=== PATIENT | male | born 1940 | race Caucasian/White ===

== ENCOUNTER 2018-05-13 22:59 | Emergency (ER) | payer OTHER ==
[~2018-05-13] VITALS: Ht 180.3 cm; Wt 83.9 kg
[2018-05-14 00:22] VITALS: BP 160/70
[2018-05-14] MEDS ORDERED: ACETAMINOPHEN/CODEINE#3 (300/30mg) TAB PO ONE (01:45)
== END 2018-05-14 01:46 | disposition home or self-care (01) ==
LOC: ER 23:10
DX: S00.81XA Abrasion of other part of head, initial encounter (principal); F17.210 Nicotine dependence, cigarettes, uncomplicated; Z86.73 Personal history of transient ischemic attack (TIA), and cerebral infarction without residual deficits; X58.XXXA Exposure to other specified factors, initial encounter; Y93.89 Activity, other specified; Y99.8 Other external cause status; Y92.89 Other specified places as the place of occurrence of the external cause

== ENCOUNTER 2018-11-15 23:17 | Emergency (ER) | payer OTHER ==
[~2018-11-15] VITALS: Ht 180.3 cm; Wt 80.7 kg
[2018-11-16 01:47] VITALS: BP 134/85
== END 2018-11-16 03:19 | disposition home or self-care (01) ==
LOC: ER 23:17
DX: L76.22 Postprocedural hemorrhage of skin and subcutaneous tissue following other procedure (principal); Z86.73 Personal history of transient ischemic attack (TIA), and cerebral infarction without residual deficits; F17.210 Nicotine dependence, cigarettes, uncomplicated; Y84.8 Other medical procedures as the cause of abnormal reaction of the patient, or of later complication, without mention of misadventure at the time of the procedure

== ENCOUNTER 2019-07-10 23:21 | Emergency (ER) | payer OTHER ==
[~2019-07-10] VITALS: Ht 180.3 cm; Wt 79.4 kg
[2019-07-11 00:18] LABS: Hematocrit 40.2 % (41.0-53.0); Hemoglobin 13.9 g/dL (13.5-17.5); Mean Corpuscular Hemoglobin 31.9 pg (28.0-32.0); Mean Corpuscular Hgb Conc. 34.7 g/dL (32.0-36.0); Mean Corpuscular Volume 92.1 fL (80.0-100.0); Platelet Count (auto) 135 10^3/uL (140-450); Red Blood Cells 4.36 10^6/uL (4.5-5.90); Red Cell Distribution Width 13.8 % (11.8-14.3); White Blood Cell 8.3 10^3/uL (4.4-10.8)
[2019-07-11 00:23] LABS: Band Neutrophils % (manual) 0; Basophils % (manual) 0 (0.0-2.0); Blast Cells 0; Eosinophils % (manual) 0 (0-7); Metamyelocytes % 0; Myelocytes % 0; Promyelocytes % 0; Reactive Lymphocytes 0
[2019-07-11 00:38] LABS: Albumin 3.5 g/dL (3.4-5.0); BUN/Creatinine Ratio 17.9; Calcium 8.4 mg/dL (8.5-10.1); Potassium 3.7 mmol/L (3.5-5.1)
[2019-07-11 00:43] LABS: Bilirubin, Total 1.4 mg/dL (0.2-1.0); Total Protein 6.9 g/dL (6.4-8.2)
[2019-07-11 00:45] LABS: Lymphocytes % (manual) 53 (10.0-50.0); Monocytes % (manual) 3 (0-12)
[2019-07-11 02:10] VITALS: BP 111/67
== END 2019-07-11 02:41 | disposition home or self-care (01) ==
LOC: ER 23:25
DX: I11.0 Hypertensive heart disease with heart failure (principal); I50.9 Heart failure, unspecified; F17.210 Nicotine dependence, cigarettes, uncomplicated; Z86.73 Personal history of transient ischemic attack (TIA), and cerebral infarction without residual deficits
CPT/HCPCS: 36415; 71045; 80053; 83880; 84484; 85007; 85027; 93005

== ENCOUNTER 2019-12-08 08:30 | Inpatient (IN) | payer OTHER ==
[~2019-12-08] VITALS: Ht 180.3 cm; Wt 78.9 kg
[2019-12-08] VITALS (51 sets, daily range): BP systolic 88–128; BP diastolic 39–76
[2019-12-08] MEDS ORDERED: IPRATROPIUM BROM 0.5 MG/2.5ML INH SOL NEB ONE (08:40)
[2019-12-08] MEDS ORDERED: ALBUTEROL SULF 2.5 MG/0.5ML(0.5%) NEB SOLN NEB ONE (08:40)
[2019-12-08] MEDS ORDERED: methylPREDNISolone SOD SUCC 125 MG/2 ML VL IV ONE (08:45)
[2019-12-08 08:57] LABS: Hematocrit 40.7 % (41.0-53.0); Hemoglobin 13.8 g/dL (13.5-17.5); Mean Corpuscular Hemoglobin 31.2 pg (28.0-32.0); Mean Corpuscular Hgb Conc. 33.9 g/dL (32.0-36.0); Platelet Count (auto) 158 10^3/uL (140-450); Red Blood Cells 4.42 10^6/uL (4.5-5.90); Red Cell Distribution Width 14.7 % (11.8-14.3)
[2019-12-08 09:01] LABS: White Blood Cell 35.5 10^3/uL (4.4-10.8)
[2019-12-08 09:02] LABS: Band Neutrophils % (manual) 0; Basophils % (manual) 0 (0.0-2.0); Blast Cells 0; Eosinophils % (manual) 0 (0-7); Metamyelocytes % 0; Myelocytes % 0; Promyelocytes % 0; Reactive Lymphocytes 0
[2019-12-08] MEDS ORDERED: AZITHROMYCIN 500MG/ 250ML 250 ML IV ONE (09:15)
[2019-12-08] MEDS ORDERED: cefTRIAXone 1GM/50ML D5W 50 ML IV ONE (09:15)
[2019-12-08 09:25] LABS: Albumin 2.8 g/dL (3.4-5.0); Anion Gap 6 (5-15); Blood Urea Nitrogen 47 mg/dL (7-18); Calcium 8.9 mg/dL (8.5-10.1); Carbon Dioxide 25 mmol/L (21-32); Chloride 100 mmol/L (98-107); Glucose 138 mg/dL (74-106); Magnesium 2.6 mg/dL (1.6-2.6); Potassium 4.7 mmol/L (3.5-5.1); Sodium 131 mmol/L (136-145)
[2019-12-08 09:28] LABS: INR 1.11 (0.9-1.15); Lactic Acid w/Reflex 2.6 mmol/L (0.4-2.0); Partial Thromboplastin Time 33.3 sec (23.64-32.05)
[2019-12-08 09:29] LABS: Lymphocytes % (manual) 68 (10.0-50.0); Monocytes % (manual) 3 (0-12)
[2019-12-08 09:31] LABS: Alanine Aminotransferase 22 U/L (16-61); Alkaline Phosphatase 63 U/L (45-117); Aspartate Aminotransferase 22 U/L (15-37); BUN/Creatinine Ratio 35.6; Bilirubin, Total 1.9 mg/dL (0.2-1.0); GFR African American 67 mL/min; GFR Non-African American 55 mL/min; Total Protein 7.3 g/dL (6.4-8.2)
[2019-12-08] MEDS ORDERED: FUROSEMIDE 20 MG/2 ML VIAL ONE (10:13)
[2019-12-08] MEDS ORDERED: FUROSEMIDE 20 MG/2 ML VIAL IV ONE (10:15)
[2019-12-08] MEDS ORDERED: FUROSEMIDE 40 MG/4 ML VIAL IV ONE ×2 (11:00→18:15)
[2019-12-08] MEDS ORDERED: MORPHINE SULF INJ 2 MG/ML SYRINGE 1ML IV PRN (11:00)
[2019-12-08] MEDS ORDERED: NITROGLYCERIN 0.4 MG SL TAB SL PRN (11:00)
[2019-12-08] MEDS: DOPamine 1600MCG/ML D5W 250 ML IV SCH ×2 (11:09→23:30)
[2019-12-08 11:46] LABS: Urine Amorphous Crystal FEW /hpf (None Seen); Urine Bacteria FEW /hpf (None Seen); Urine Blood TRACE /uL (Negative); Urine Mucus FEW (None Seen); Urine Specific Gravity 1.025 (1.001-1.035); Urine WBC 1 /hpf (0 - 3)
[2019-12-08] MEDS ORDERED: FUROSEMIDE 40 MG/4 ML VIAL ONE ×2 (14:44→18:22)
[2019-12-08] MEDS ORDERED: SPIR25TA88 PO (15:48)
[2019-12-08] MEDS ORDERED: CITA-244 PO (15:48)
[2019-12-08] MEDS ORDERED: LOSA25TA38 PO (15:48)
[2019-12-08] MEDS ORDERED: APIX5TAB PO (15:48)
[2019-12-08] MEDS ORDERED: BISO5TAB44 PO (15:48)
[2019-12-08] MEDS ORDERED: PRAV20TA3 PO (15:48)
[2019-12-08] MEDS ORDERED: POTA8TAB2 PO (15:48)
[2019-12-08] MEDS: SPIRONOLACTONE 25 MG TAB PO SCH (20:23)
[2019-12-08] MEDS: APIXABAN 2.5 MG TAB PO SCH (21:47)
[2019-12-08] MEDS: DOXYCYCLINE 100 MG TAB/CAP PO SCH (21:47)
[2019-12-08] MEDS: ATORVASTATIN 20 MG TAB PO SCH (21:47)
[2019-12-08] MEDS: FAMOTIDINE (10MG/ML) 2ML VL IV SCH (21:47)
[2019-12-09] VITALS (180 sets, daily range): BP systolic 66–159; BP diastolic 27–84
[2019-12-09 03:42] LABS: Hemoglobin 13.5 g/dL (13.5-17.5); Mean Corpuscular Hemoglobin 30.7 pg (28.0-32.0); Mean Corpuscular Hgb Conc. 33.7 g/dL (32.0-36.0); Platelet Count (auto) 186 10^3/uL (140-450); Red Blood Cells 4.39 10^6/uL (4.5-5.90); Red Cell Distribution Width 14.5 % (11.8-14.3)
[2019-12-09 03:54] LABS: Albumin 2.5 g/dL (3.4-5.0); Calcium 9.1 mg/dL (8.5-10.1); Potassium 4.6 mmol/L (3.5-5.1)
[2019-12-09 03:59] LABS: Bilirubin, Total 1.1 mg/dL (0.2-1.0); Total Protein 7.1 g/dL (6.4-8.2)
[2019-12-09 04:20] LABS: White Blood Cell 33.5 10^3/uL (4.4-10.8)
[2019-12-09 04:21] LABS: Basophils % (manual) 0 (0.0-2.0); Blast Cells 0; Eosinophils % (manual) 0 (0-7); Metamyelocytes % 0; Myelocytes % 0; Promyelocytes % 0; Reactive Lymphocytes 0
[2019-12-09 04:56] LABS: Band Neutrophils % (manual) 1; Monocytes % (manual) 2 (0-12)
[2019-12-09 04:57] LABS: Lymphocytes % (manual) 77 (10.0-50.0)
[2019-12-09] MEDS: SPIRONOLACTONE 25 MG TAB PO SCH ×2 (05:53→17:57)
[2019-12-09] MEDS ORDERED: DIGOXIN (250MCG/ML) 2 ML AMPULE IV ONE (08:30)
[2019-12-09] MEDS ORDERED: FUROSEMIDE 40 MG/4 ML VIAL IV SCH (10:00)
[2019-12-09] MEDS: DOXYCYCLINE 100 MG TAB/CAP PO SCH ×2 (10:21→21:53)
[2019-12-09] MEDS: CITALOPRAM HYDROBR 20 MG TAB PO SCH (10:22)
[2019-12-09] MEDS: APIXABAN 2.5 MG TAB PO SCH ×2 (10:22→21:53)
[2019-12-09] MEDS: FAMOTIDINE (10MG/ML) 2ML VL IV SCH (10:23)
[2019-12-09] MEDS: DOPamine 1600MCG/ML D5W 250 ML IV SCH (10:44)
[2019-12-09] MEDS ORDERED: FUROSEMIDE 20 MG/2 ML VIAL IV ONE (15:00)
[2019-12-09] MEDS: Ensure HIGH Protein Chocolate 8oz Bottle PO SCH (19:00)
[2019-12-09] MEDS: ATORVASTATIN 20 MG TAB PO SCH (21:53)
[2019-12-09] MEDS: FUROSEMIDE 20 MG/2 ML VIAL IV SCH (21:53)
[2019-12-09] MEDS ORDERED: LORazepam 2MG/ML-1ML VIAL IV ONE (22:30)
[2019-12-10] VITALS (76 sets, daily range): BP systolic 89–154; BP diastolic 46–84
[2019-12-10 04:14] LABS: Hematocrit 38.9 % (41.0-53.0); Hemoglobin 13.3 g/dL (13.5-17.5); Mean Corpuscular Hemoglobin 30.9 pg (28.0-32.0); Mean Corpuscular Hgb Conc. 34.2 g/dL (32.0-36.0); Mean Corpuscular Volume 90.5 fL (80.0-100.0); Platelet Count (auto) 157 10^3/uL (140-450); Red Cell Distribution Width 14.2 % (11.8-14.3)
[2019-12-10 04:16] LABS: Basophils % (manual) 0 (0.0-2.0); Blast Cells 0; Eosinophils % (manual) 0 (0-7); Metamyelocytes % 0; Myelocytes % 0; Promyelocytes % 0; Reactive Lymphocytes 0
[2019-12-10 04:30] LABS: Potassium 4.1 mmol/L (3.5-5.1)
[2019-12-10 04:41] LABS: Albumin 2.3 g/dL (3.4-5.0); BUN/Creatinine Ratio 49.3; Bilirubin, Total 0.8 mg/dL (0.2-1.0); Calcium 9.1 mg/dL (8.5-10.1); Total Protein 6.6 g/dL (6.4-8.2)
[2019-12-10 05:44] LABS: Band Neutrophils % (manual) 4; Lymphocytes % (manual) 69 (10.0-50.0); Monocytes % (manual) 2 (0-12)
[2019-12-10] MEDS ORDERED: dilTIAZem 25 MG/5 ML VIAL IV ONE (06:45)
[2019-12-10] MEDS ORDERED: AMIODARONE HCL 150 MG in D5W 5% 100 ML IV ONE (06:45)
[2019-12-10] MEDS: dilTIAZem 125mg/125ml BAG KIT 125 ML IV SCH (06:45)
[2019-12-10] MEDS ORDERED: DIGOXIN (250MCG/ML) 2 ML AMPULE IV ONE (06:45)
[2019-12-10] MEDS ORDERED: AMIODARONE HCL 900 MG in DEXTROSE 500 ML IV SCH (06:49)
[2019-12-10] MEDS ORDERED: DIGOXIN (250MCG/ML) 2 ML AMPULE ONE (06:50)
[2019-12-10] MEDS: SPIRONOLACTONE 25 MG TAB PO SCH ×2 (06:54→18:18)
[2019-12-10] MEDS: Ensure HIGH Protein Chocolate 8oz Bottle PO SCH ×3 (08:00→18:00)
[2019-12-10] MEDS: DOPamine 1600MCG/ML D5W 250 ML IV SCH (11:00)
[2019-12-10] MEDS: CITALOPRAM HYDROBR 20 MG TAB PO SCH (12:56)
[2019-12-10] MEDS: DOXYCYCLINE 100 MG TAB/CAP PO SCH ×2 (12:56→22:25)
[2019-12-10] MEDS: APIXABAN 2.5 MG TAB PO SCH ×2 (12:56→22:24)
[2019-12-10] MEDS: FAMOTIDINE (10MG/ML) 2ML VL IV SCH (12:56)
[2019-12-10] MEDS: FUROSEMIDE 20 MG/2 ML VIAL IV SCH ×2 (12:56→22:23)
[2019-12-10] MEDS ORDERED: VANCOMYCIN PER PHARMACY 0 MG IV SCH (14:30)
[2019-12-10] MEDS ORDERED: NICOTINE 21MG/24 HR TOPICAL PATCH TD ONE (14:30)
[2019-12-10] MEDS ORDERED: PIPERACILLIN-TAZOB 3.375GM 100 ML IV SCH (15:00)
[2019-12-10] MEDS ORDERED: VANCOMYCIN 1GM/250ML 250 ML IV ONE ×3 (16:00→18:00)
[2019-12-10] MEDS ORDERED: AMIODARONE HCL 200 MG TAB PO ONE (17:30)
[2019-12-10] MEDS ORDERED: dilTIAZem 120MG ER CAP PO ONE (18:00)
[2019-12-10] MEDS ORDERED: VANCOMYCIN 1GM/250ML 250 ML IV SCH (18:13)
[2019-12-10] MEDS: IPRATROPIUM BROM 0.5 MG/2.5ML INH SOL NEB SCH ×2 (18:38→22:30)
[2019-12-10] MEDS: ALBUTEROL SULF 2.5 MG/0.5ML(0.5%) NEB SOLN NEB SCH ×2 (18:38→22:30)
[2019-12-10] MEDS ORDERED: dilTIAZem HCL 180MG ER CAP PO ONE (18:45)
[2019-12-10] MEDS: PIPERACILLIN-TAZOB 3.375GM 100 ML IV SCH (19:00)
[2019-12-10] MEDS: AMIODARONE HCL 200 MG TAB PO SCH (22:23)
[2019-12-10] MEDS: ATORVASTATIN 20 MG TAB PO SCH (22:24)
[2019-12-10] MEDS: SACUBITRIL-VALSARTAN 24mg/26mg TAB PO SCH (22:24)
[2019-12-10] MEDS: MONTELUKAST SODIUM 10 MG TAB PO SCH (22:25)
[2019-12-11] VITALS (76 sets, daily range): BP systolic 86–121; BP diastolic 41–74
[2019-12-11] MEDS: PIPERACILLIN-TAZOB 3.375GM 100 ML IV SCH ×4 (01:00→18:41)
[2019-12-11] MEDS: ALBUTEROL SULF 2.5 MG/0.5ML(0.5%) NEB SOLN NEB SCH ×6 (02:25→22:07)
[2019-12-11] MEDS: IPRATROPIUM BROM 0.5 MG/2.5ML INH SOL NEB SCH ×6 (02:25→22:07)
[2019-12-11 03:59] LABS: Hemoglobin 14.1 g/dL (13.5-17.5); Mean Corpuscular Hemoglobin 30.5 pg (28.0-32.0); Mean Corpuscular Hgb Conc. 33.5 g/dL (32.0-36.0); Mean Corpuscular Volume 91.1 fL (80.0-100.0); Platelet Count (auto) 162 10^3/uL (140-450); Red Blood Cells 4.61 10^6/uL (4.5-5.90); Red Cell Distribution Width 14.2 % (11.8-14.3); White Blood Cell 25.1 10^3/uL (4.4-10.8)
[2019-12-11 04:17] LABS: Albumin 2.5 g/dL (3.4-5.0); BUN/Creatinine Ratio 43.2; Calcium 9.3 mg/dL (8.5-10.1); Potassium 3.9 mmol/L (3.5-5.1)
[2019-12-11 04:33] LABS: Bilirubin, Total 1.2 mg/dL (0.2-1.0); Total Protein 6.8 g/dL (6.4-8.2)
[2019-12-11 04:44] LABS: Basophils % (manual) 0 (0.0-2.0); Blast Cells 0; Eosinophils % (manual) 0 (0-7); Metamyelocytes % 0; Myelocytes % 0; Promyelocytes % 0
[2019-12-11 05:43] LABS: Band Neutrophils % (manual) 3; Lymphocytes % (manual) 67 (10.0-50.0); Monocytes % (manual) 1 (0-12); Reactive Lymphocytes 1
[2019-12-11] MEDS: SPIRONOLACTONE 25 MG TAB PO SCH ×2 (06:34→18:41)
[2019-12-11] MEDS: dilTIAZem 125mg/125ml BAG KIT 125 ML IV SCH (06:45)
[2019-12-11] MEDS: Ensure HIGH Protein Chocolate 8oz Bottle PO SCH ×3 (08:00→18:00)
[2019-12-11] MEDS: FAMOTIDINE (10MG/ML) 2ML VL IV SCH (09:59)
[2019-12-11] MEDS: FUROSEMIDE 20 MG/2 ML VIAL IV SCH ×2 (10:00→22:03)
[2019-12-11] MEDS: SACUBITRIL-VALSARTAN 24mg/26mg TAB PO SCH ×2 (10:00→22:00)
[2019-12-11] MEDS: NICOTINE 21MG/24 HR TOPICAL PATCH TD SCH (10:01)
[2019-12-11] MEDS: APIXABAN 2.5 MG TAB PO SCH ×2 (10:02→22:04)
[2019-12-11] MEDS: CITALOPRAM HYDROBR 20 MG TAB PO SCH (10:03)
[2019-12-11] MEDS: predniSONE 20 MG TAB PO SCH (10:03)
[2019-12-11] MEDS: DOXYCYCLINE 100 MG TAB/CAP PO SCH ×2 (10:03→22:04)
[2019-12-11] MEDS: dilTIAZem HCL 180MG ER CAP PO SCH (10:04)
[2019-12-11] MEDS ORDERED: ACETAMINOPHEN 325 MG TAB PO ONE (10:05)
[2019-12-11] MEDS: AMIODARONE HCL 200 MG TAB PO SCH ×2 (10:06→22:03)
[2019-12-11] MEDS ORDERED: ACETAMINOPHEN 325 MG TAB PO PRN (10:30)
[2019-12-11] MEDS: DOPamine 1600MCG/ML D5W 250 ML IV SCH (11:00)
[2019-12-11] MEDS: VANCOMYCIN 1GM/250ML 250 ML IV SCH (13:00)
[2019-12-11] MEDS: ACETYLCYSTEINE 10 %(100MG/ML) SOL 4ML NEB SCH ×2 (14:47→22:07)
[2019-12-11 15:39] LABS: Hepatitis B Surface Antibody Negative
[2019-12-11 16:31] LABS: Hepatitis B Core Total AB Negative; Hepatitis B Surface Antigen Negative (Negative); Hepatitis C Antibody Negative (Negative)
[2019-12-11] MEDS: ATORVASTATIN 20 MG TAB PO SCH (22:04)
[2019-12-11] MEDS: MONTELUKAST SODIUM 10 MG TAB PO SCH (22:09)
[2019-12-12] VITALS (31 sets, daily range): BP systolic 84–122; BP diastolic 38–66
[2019-12-12] MEDS: IPRATROPIUM BROM 0.5 MG/2.5ML INH SOL NEB SCH ×6 (02:26→22:04)
[2019-12-12] MEDS: ALBUTEROL SULF 2.5 MG/0.5ML(0.5%) NEB SOLN NEB SCH ×6 (02:26→22:04)
[2019-12-12] MEDS: PIPERACILLIN-TAZOB 3.375GM 100 ML IV SCH ×4 (02:32→18:33)
[2019-12-12 04:28] LABS: Hematocrit 40.2 % (41.0-53.0); Hemoglobin 13.7 g/dL (13.5-17.5); Mean Corpuscular Hemoglobin 31.2 pg (28.0-32.0); Mean Corpuscular Volume 91.7 fL (80.0-100.0); Platelet Count (auto) 161 10^3/uL (140-450); Red Blood Cells 4.38 10^6/uL (4.5-5.90); White Blood Cell 25.8 10^3/uL (4.4-10.8)
[2019-12-12 04:34] LABS: Band Neutrophils % (manual) 0; Basophils % (manual) 0 (0.0-2.0); Blast Cells 0; Eosinophils % (manual) 0 (0-7); Metamyelocytes % 0; Myelocytes % 0; Promyelocytes % 0
[2019-12-12 04:49] LABS: Potassium 3.9 mmol/L (3.5-5.1)
[2019-12-12 04:58] LABS: Albumin 2.3 g/dL (3.4-5.0); BUN/Creatinine Ratio 35.8; Bilirubin, Total 1.3 mg/dL (0.2-1.0); Calcium 8.9 mg/dL (8.5-10.1); Total Protein 6.4 g/dL (6.4-8.2)
[2019-12-12 05:11] LABS: Lymphocytes % (manual) 55 (10.0-50.0); Monocytes % (manual) 2 (0-12); Reactive Lymphocytes 1
[2019-12-12] MEDS: VANCOMYCIN 1GM/250ML 250 ML IV SCH ×2 (06:00→23:59)
[2019-12-12] MEDS: SPIRONOLACTONE 25 MG TAB PO SCH ×2 (06:00→18:26)
[2019-12-12] MEDS: dilTIAZem 125mg/125ml BAG KIT 125 ML IV SCH (06:45)
[2019-12-12] MEDS: Ensure HIGH Protein Chocolate 8oz Bottle PO SCH ×3 (08:00→18:27)
[2019-12-12] MEDS: ACETYLCYSTEINE 10 %(100MG/ML) SOL 4ML NEB SCH ×3 (08:17→22:04)
[2019-12-12] MEDS: dilTIAZem HCL 180MG ER CAP PO SCH (10:00)
[2019-12-12] MEDS: SACUBITRIL-VALSARTAN 24mg/26mg TAB PO SCH ×2 (10:00→21:30)
[2019-12-12] MEDS: FAMOTIDINE (10MG/ML) 2ML VL IV SCH (10:26)
[2019-12-12] MEDS: NICOTINE 21MG/24 HR TOPICAL PATCH TD SCH (10:26)
[2019-12-12] MEDS: predniSONE 20 MG TAB PO SCH (10:27)
[2019-12-12] MEDS: DOXYCYCLINE 100 MG TAB/CAP PO SCH ×2 (10:27→21:10)
[2019-12-12] MEDS: CITALOPRAM HYDROBR 20 MG TAB PO SCH (10:27)
[2019-12-12] MEDS: APIXABAN 2.5 MG TAB PO SCH ×2 (10:27→21:10)
[2019-12-12] MEDS: FUROSEMIDE 20 MG/2 ML VIAL IV SCH ×2 (10:27→21:11)
[2019-12-12] MEDS: AMIODARONE HCL 200 MG TAB PO SCH ×2 (10:27→21:11)
[2019-12-12] MEDS: DIGOXIN 0.125 MG TAB PO SCH (10:28)
[2019-12-12] MEDS: DOPamine 1600MCG/ML D5W 250 ML IV SCH (11:00)
[2019-12-12] MEDS ORDERED: NYSTATIN (MOUTH-THROAT) 500,000 UNITS/5 ML SUSP MT ONE (14:45)
[2019-12-12] MEDS: ATORVASTATIN 20 MG TAB PO SCH (21:10)
[2019-12-12] MEDS: NYSTATIN (MOUTH-THROAT) 500,000 UNITS/5 ML SUSP MT SCH (21:11)
[2019-12-12] MEDS: MONTELUKAST SODIUM 10 MG TAB PO SCH (21:11)
[2019-12-13] VITALS (17 sets, daily range): BP systolic 100–124; BP diastolic 49–94
[2019-12-13] MEDS: PIPERACILLIN-TAZOB 3.375GM 100 ML IV SCH ×4 (01:00→18:38)
[2019-12-13] MEDS: ALBUTEROL SULF 2.5 MG/0.5ML(0.5%) NEB SOLN NEB SCH ×6 (02:23→23:00)
[2019-12-13] MEDS: IPRATROPIUM BROM 0.5 MG/2.5ML INH SOL NEB SCH ×6 (02:23→23:00)
[2019-12-13 02:43] LABS: Hematocrit 41.4 % (41.0-53.0); Hemoglobin 13.8 g/dL (13.5-17.5); Mean Corpuscular Hemoglobin 30.7 pg (28.0-32.0); Mean Corpuscular Hgb Conc. 33.4 g/dL (32.0-36.0); Platelet Count (auto) 205 10^3/uL (140-450); Red Blood Cells 4.49 10^6/uL (4.5-5.90); Red Cell Distribution Width 14.5 % (11.8-14.3); White Blood Cell 25.8 10^3/uL (4.4-10.8)
[2019-12-13 02:45] LABS: Band Neutrophils % (manual) 0; Basophils % (manual) 0 (0.0-2.0); Blast Cells 0; Eosinophils % (manual) 0 (0-7); Metamyelocytes % 0; Myelocytes % 0; Promyelocytes % 0; Reactive Lymphocytes 0
[2019-12-13 02:53] LABS: Albumin 2.3 g/dL (3.4-5.0); BUN/Creatinine Ratio 34.9; Calcium 9.1 mg/dL (8.5-10.1); Potassium 4.6 mmol/L (3.5-5.1)
[2019-12-13 02:55] LABS: Bilirubin, Total 1.1 mg/dL (0.2-1.0); Total Protein 6.8 g/dL (6.4-8.2)
[2019-12-13 03:17] LABS: Lymphocytes % (manual) 63 (10.0-50.0); Monocytes % (manual) 3 (0-12)
[2019-12-13] MEDS: SPIRONOLACTONE 25 MG TAB PO SCH ×2 (06:00→18:38)
[2019-12-13] MEDS: NYSTATIN (MOUTH-THROAT) 500,000 UNITS/5 ML SUSP MT SCH ×4 (06:00→22:58)
[2019-12-13] MEDS: ACETYLCYSTEINE 10 %(100MG/ML) SOL 4ML NEB SCH (06:15)
[2019-12-13] MEDS: dilTIAZem 125mg/125ml BAG KIT 125 ML IV SCH (06:45)
[2019-12-13 08:06] LABS: Immunoglobulin G, Serum 903 mg/dL (700-1600)
[2019-12-13] MEDS: FAMOTIDINE (10MG/ML) 2ML VL IV SCH (09:56)
[2019-12-13] MEDS: predniSONE 20 MG TAB PO SCH (09:57)
[2019-12-13] MEDS: CITALOPRAM HYDROBR 20 MG TAB PO SCH (09:59)
[2019-12-13] MEDS: AMIODARONE HCL 200 MG TAB PO SCH ×2 (09:59→22:58)
[2019-12-13] MEDS: DOXYCYCLINE 100 MG TAB/CAP PO SCH ×2 (09:59→22:56)
[2019-12-13] MEDS: APIXABAN 2.5 MG TAB PO SCH ×2 (10:00→22:57)
[2019-12-13] MEDS: FUROSEMIDE 20 MG/2 ML VIAL IV SCH ×2 (10:00→22:00)
[2019-12-13] MEDS: SACUBITRIL-VALSARTAN 24mg/26mg TAB PO SCH ×2 (10:00→22:00)
[2019-12-13] MEDS: NICOTINE 21MG/24 HR TOPICAL PATCH TD SCH (10:05)
[2019-12-13] MEDS: Ensure HIGH Protein Chocolate 8oz Bottle PO SCH ×3 (10:18→18:00)
[2019-12-13] MEDS: DOPamine 1600MCG/ML D5W 250 ML IV SCH (11:00)
[2019-12-13] MEDS: dilTIAZem HCL 180MG ER CAP PO SCH (12:09)
[2019-12-13] MEDS: VANCOMYCIN 1GM/250ML 250 ML IV SCH (16:04)
[2019-12-13] MEDS: MONTELUKAST SODIUM 10 MG TAB PO SCH (22:55)
[2019-12-13] MEDS: ATORVASTATIN 20 MG TAB PO SCH (22:56)
[2019-12-14] VITALS (7 sets, daily range): BP systolic 111–139; BP diastolic 59–80
[2019-12-14] MEDS: PIPERACILLIN-TAZOB 3.375GM 100 ML IV SCH ×4 (01:31→18:20)
[2019-12-14] MEDS: IPRATROPIUM BROM 0.5 MG/2.5ML INH SOL NEB SCH ×6 (02:31→21:35)
[2019-12-14] MEDS: ALBUTEROL SULF 2.5 MG/0.5ML(0.5%) NEB SOLN NEB SCH ×6 (02:31→21:35)
[2019-12-14 05:47] LABS: Hematocrit 38.7 % (41.0-53.0); Hemoglobin 13.1 g/dL (13.5-17.5); Mean Corpuscular Hemoglobin 30.7 pg (28.0-32.0); Mean Corpuscular Hgb Conc. 33.8 g/dL (32.0-36.0); Mean Corpuscular Volume 90.9 fL (80.0-100.0); Platelet Count (auto) 212 10^3/uL (140-450); Red Blood Cells 4.25 10^6/uL (4.5-5.90); Red Cell Distribution Width 13.9 % (11.8-14.3); White Blood Cell 25.6 10^3/uL (4.4-10.8)
[2019-12-14 05:50] LABS: Basophils % (manual) 0 (0.0-2.0); Blast Cells 0; Metamyelocytes % 0; Myelocytes % 0; Promyelocytes % 0
[2019-12-14 05:55] LABS: Potassium 4.5 mmol/L (3.5-5.1)
[2019-12-14 06:05] LABS: Albumin 2.2 g/dL (3.4-5.0); BUN/Creatinine Ratio 30.8; Calcium 8.8 mg/dL (8.5-10.1); Total Protein 6.1 g/dL (6.4-8.2)
[2019-12-14] MEDS: SPIRONOLACTONE 25 MG TAB PO SCH ×2 (06:15→18:14)
[2019-12-14] MEDS: NYSTATIN (MOUTH-THROAT) 500,000 UNITS/5 ML SUSP MT SCH ×4 (06:15→21:44)
[2019-12-14] MEDS: Ensure HIGH Protein Chocolate 8oz Bottle PO SCH ×3 (08:00→18:16)
[2019-12-14] MEDS: VANCOMYCIN 1GM/250ML 250 ML IV SCH ×2 (09:23→23:41)
[2019-12-14] MEDS: SACUBITRIL-VALSARTAN 24mg/26mg TAB PO SCH ×2 (10:00→21:45)
[2019-12-14] MEDS: FUROSEMIDE 20 MG/2 ML VIAL IV SCH ×2 (10:00→18:16)
[2019-12-14] MEDS: DOXYCYCLINE 100 MG TAB/CAP PO SCH ×2 (10:01→21:49)
[2019-12-14] MEDS: FAMOTIDINE (10MG/ML) 2ML VL IV SCH (10:01)
[2019-12-14] MEDS: dilTIAZem HCL 180MG ER CAP PO SCH (10:01)
[2019-12-14] MEDS: NICOTINE 21MG/24 HR TOPICAL PATCH TD SCH (10:01)
[2019-12-14] MEDS: CITALOPRAM HYDROBR 20 MG TAB PO SCH (10:02)
[2019-12-14] MEDS: predniSONE 20 MG TAB PO SCH (10:02)
[2019-12-14] MEDS: APIXABAN 2.5 MG TAB PO SCH ×2 (10:02→21:45)
[2019-12-14] MEDS: AMIODARONE HCL 200 MG TAB PO SCH ×2 (10:02→21:45)
[2019-12-14 11:00] LABS: Band Neutrophils % (manual) 2; Eosinophils % (manual) 1 (0-7); Lymphocytes % (manual) 55 (10.0-50.0); Monocytes % (manual) 4 (0-12); Reactive Lymphocytes 2
[2019-12-14] MEDS: ATORVASTATIN 20 MG TAB PO SCH (21:45)
[2019-12-14] MEDS: MONTELUKAST SODIUM 10 MG TAB PO SCH (21:50)
[2019-12-15] MEDS: PIPERACILLIN-TAZOB 3.375GM 100 ML IV SCH ×2 (00:45→06:30)
[2019-12-15] MEDS: IPRATROPIUM BROM 0.5 MG/2.5ML INH SOL NEB SCH ×4 (01:59→14:04)
[2019-12-15] MEDS: ALBUTEROL SULF 2.5 MG/0.5ML(0.5%) NEB SOLN NEB SCH ×4 (01:59→14:04)
[2019-12-15 05:07] VITALS: BP 125/65
[2019-12-15] MEDS: FUROSEMIDE 20 MG/2 ML VIAL IV SCH (05:46)
[2019-12-15] MEDS: SPIRONOLACTONE 25 MG TAB PO SCH (05:46)
[2019-12-15] MEDS: NYSTATIN (MOUTH-THROAT) 500,000 UNITS/5 ML SUSP MT SCH ×2 (05:46→12:36)
[2019-12-15 06:30] LABS: Hematocrit 37.9 % (41.0-53.0); Hemoglobin 12.9 g/dL (13.5-17.5); Mean Corpuscular Hemoglobin 30.8 pg (28.0-32.0); Mean Corpuscular Volume 90.5 fL (80.0-100.0); Platelet Count (auto) 208 10^3/uL (140-450); Red Blood Cells 4.19 10^6/uL (4.5-5.90); Red Cell Distribution Width 13.9 % (11.8-14.3); White Blood Cell 23.8 10^3/uL (4.4-10.8)
[2019-12-15 06:43] LABS: BUN/Creatinine Ratio 27.7; Calcium 8.7 mg/dL (8.5-10.1); Potassium 3.9 mmol/L (3.5-5.1)
[2019-12-15 06:50] LABS: Band Neutrophils % (manual) 0; Basophils % (manual) 0 (0.0-2.0); Blast Cells 0; Eosinophils % (manual) 0 (0-7); Metamyelocytes % 0; Myelocytes % 0; Promyelocytes % 0; Reactive Lymphocytes 0
[2019-12-15 07:42] LABS: Lymphocytes % (manual) 61 (10.0-50.0); Monocytes % (manual) 5 (0-12)
[2019-12-15 08:58] VITALS: BP 100/59
[2019-12-15] MEDS: AMIODARONE HCL 200 MG TAB PO SCH (10:00)
[2019-12-15] MEDS ORDERED: FAMOTIDINE (10MG/ML) 2ML VL IV SCH (10:00)
[2019-12-15] MEDS: DIGOXIN 0.125 MG TAB PO SCH (10:00)
[2019-12-15] MEDS: SACUBITRIL-VALSARTAN 24mg/26mg TAB PO SCH (10:00)
[2019-12-15] MEDS: Ensure HIGH Protein Chocolate 8oz Bottle PO SCH ×2 (10:20→12:37)
[2019-12-15] MEDS: NICOTINE 21MG/24 HR TOPICAL PATCH TD SCH (10:21)
[2019-12-15] MEDS: predniSONE 20 MG TAB PO SCH (10:27)
[2019-12-15] MEDS: CITALOPRAM HYDROBR 20 MG TAB PO SCH (10:27)
[2019-12-15] MEDS: APIXABAN 2.5 MG TAB PO SCH (10:27)
[2019-12-15] MEDS: dilTIAZem HCL 180MG ER CAP PO SCH (10:28)
[2019-12-15] MEDS ORDERED: levoFLOXacin 750MG 150 ML IV ONE (10:30)
[2019-12-15] MEDS: FLUCONAZOLE 200MG/100ML 100 ML IV SCH ×2 (12:36→15:07)
[2019-12-15 13:00] VITALS: BP 105/52
[2019-12-15] MEDS ORDERED: VANCOMYCIN 1GM/250ML 250 ML IV SCH (14:00)
[2019-12-15 16:25] VITALS: BP 105/52
[2019-12-16] MEDS ORDERED: levoFLOXacin 750MG 150 ML IV SCH (10:00)
== END 2019-12-15 17:20 | disposition home or self-care (01) | DRG 871 ==
LOC: ER 08:30 → EDBD 08:30 → ICU WEST 08:31 → UNDOADMIN 11:25 → DOU IN ICU 12-13 14:20 → TELE-WESTW 12-14 10:28
PROVIDERS: ADMIT Nurse Practitioner Acute Care; ATTEND Internal Medicine
DX: A41.9 Sepsis, unspecified organism (principal); I50.43 Acute on chronic combined systolic (congestive) and diastolic (congestive) heart failure; J18.9 Pneumonia, unspecified organism; J96.22 Acute and chronic respiratory failure with hypercapnia; J96.21 Acute and chronic respiratory failure with hypoxia; N17.0 Acute kidney failure with tubular necrosis; R65.21 Severe sepsis with septic shock; I42.0 Dilated cardiomyopathy; I48.20 Chronic atrial fibrillation, unspecified; E44.0 Moderate protein-calorie malnutrition; E87.1 Hypo-osmolality and hyponatremia; I48.92 Unspecified atrial flutter; J45.901 Unspecified asthma with (acute) exacerbation; J44.0 Chronic obstructive pulmonary disease with (acute) lower respiratory infection; J44.1 Chronic obstructive pulmonary disease with (acute) exacerbation; B37.0 Candidal stomatitis; I27.20 Pulmonary hypertension, unspecified; N18.3 Chronic kidney disease, stage 3 (moderate); E86.1 Hypovolemia; E78.5 Hyperlipidemia, unspecified; F32.9 Major depressive disorder, single episode, unspecified; I48.91 Unspecified atrial fibrillation; D72.829 Elevated white blood cell count, unspecified; Z79.899 Other long term (current) drug therapy; Z83.6 Family history of other diseases of the respiratory system; Z82.49 Family history of ischemic heart disease and other diseases of the circulatory system; Z82.5 Family history of asthma and other chronic lower respiratory diseases; Z92.21 Personal history of antineoplastic chemotherapy; Z85.828 Personal history of other malignant neoplasm of skin; Z99.81 Dependence on supplemental oxygen; Z92.3 Personal history of irradiation; Z90.49 Acquired absence of other specified parts of digestive tract; Z68.24 Body mass index [BMI] 24.0-24.9, adult
CPT/HCPCS: 36415; 36600; 71045; 80048; 80053; 80061; 80202; 81001; 82784; 82805; 83605; 83615; 83735; 83880; 84443; 84484; 85007; 85027; 85379; 85610; 85730; 86334; 86704; 86706; 86803; 87040; 87070; 87077; 87081; 87086; 87186; 87205; 87340; 87804; 93005; 93306; 94640; 94660; 96365; 96367; 96375; G0378; J0696; J1450; J1956; J2543; J3490; J7060

== ENCOUNTER → 2020-10-11 | Emergency (ER) | payer OTHER ==
[~2020-10-11] VITALS: Ht 172.7 cm; Wt 40.8 kg
[~2020-10-11] MED LIST: APIX5TAB PO; BISO5TAB44 PO; CITA-244 PO; LORazepam 2MG/ML-1ML VIAL IV ONE; LORazepam 2MG/ML-1ML VIAL ONE; POTA8TAB2 PO; PRAV20TA3 PO; PROTAMINE SULFATE 50 MG in SODIUM CHL 0.9% 50 ML IV ONE; SPIR25TA88 PO
[2020-10-11 15:43] LABS: Hematocrit 33.3 % (41.0-53.0); Hemoglobin 10.8 g/dL (13.5-17.5); Mean Corpuscular Hemoglobin 30.9 pg (28.0-32.0); Mean Corpuscular Hgb Conc. 32.5 g/dL (32.0-36.0); Mean Corpuscular Volume 95.1 fL (80.0-100.0); Platelet Count (auto) 266 10^3/uL (140-450); Red Cell Distribution Width 16.3 % (11.8-14.3); White Blood Cell 22.3 10^3/uL (4.4-10.8)
[2020-10-11 16:00] LABS: Albumin 2.5 g/dL (3.4-5.0); Anion Gap 4 (5-15); BUN/Creatinine Ratio 24.8; Band Neutrophils % (manual) 0; Basophils % (manual) 0 (0.0-2.0); Blast Cells 0; Blood Urea Nitrogen 28 mg/dL (7-18); Calcium 8.4 mg/dL (8.5-10.1); Carbon Dioxide 25 mmol/L (21-32); Chloride 106 mmol/L (98-107); Eosinophils % (manual) 0 (0-7); GFR African American 80 mL/min; GFR Non-African American 66 mL/min; Glucose 87 mg/dL (74-106); Magnesium 2.2 mg/dL (1.6-2.6); Metamyelocytes % 0; Myelocytes % 0; Potassium 4.9 mmol/L (3.5-5.1); Promyelocytes % 0; Sodium 135 mmol/L (136-145)
[2020-10-11 16:05] LABS: Alanine Aminotransferase 26 U/L (16-61); Alkaline Phosphatase 98 U/L (45-117); Aspartate Aminotransferase 26 U/L (15-37); Bilirubin, Total 0.8 mg/dL (0.2-1.0); Total Protein 6.3 g/dL (6.4-8.2)
[2020-10-11 16:59] LABS: Lymphocytes % (manual) 64 (10.0-50.0); Monocytes % (manual) 1 (0-12); Reactive Lymphocytes 4
[2020-10-11 17:41] LABS: INR 1.2 (0.9-1.15); Partial Thromboplastin Time 32.7 sec (23.0-31.2)
[2020-10-11 17:45] VITALS: BP 101/48
== END | disposition home or self-care (01) ==
LOC: EDUNIT# 14:00 → EDBD 14:31 → ER 14:34
DX: S06.6X0A Traumatic subarachnoid hemorrhage without loss of consciousness, initial encounter (principal); C91.10 Chronic lymphocytic leukemia of B-cell type not having achieved remission; I11.0 Hypertensive heart disease with heart failure; I50.9 Heart failure, unspecified; Z20.822 Contact with and (suspected) exposure to COVID-19; Z86.73 Personal history of transient ischemic attack (TIA), and cerebral infarction without residual deficits; W18.09XA Striking against other object with subsequent fall, initial encounter; Y93.89 Activity, other specified; Y92.89 Other specified places as the place of occurrence of the external cause; Y99.8 Other external cause status
CPT/HCPCS: 36415; 70450; 80053; 83735; 84484; 85007; 85027; 85610; 85730; 87426; 93005; 96365; 96375; 99285; J2060; J2720